=== PATIENT | female | born 1975 ===

== ENCOUNTER → 2018-08-08 | Outpatient (REF) | payer OTHER | LOC: M LAB LCGH 11:47 | PROVIDERS: ATTEND Obstetrics & Gynecology Obstetrics | DX: Z34.90 Encounter for supervision of normal pregnancy, unspecified, unspecified trimester (principal); Z3A.00 Weeks of gestation of pregnancy not specified ==

== ENCOUNTER → 2023-06-08 | Outpatient (REF) | LOC: M LAB REF 16:23 | PROVIDERS: ATTEND Obstetrics & Gynecology Obstetrics | DX: Z36.89 Encounter for other specified antenatal screening (principal) ==